=== PATIENT | male | born 1960 | race African-American/Black ===

== ENCOUNTER 2016-07-10 12:59 | Emergency (ER) | payer OTHER ==
[~2016-07-10] VITALS: Ht 177.8 cm; Wt 98.0 kg
[~2016-07-10 12:59] MED LIST: IBUP-232 PO
[2016-07-10 13:03] VITALS: BP 144/88; PULSE 70; RESP 16; TEMP 98.1; O2SAT 98
[2016-07-10] MEDS ORDERED: cefTRIAXone 250 MG VIAL IM ONE (13:15)
[2016-07-10] MEDS ORDERED: AZITHROMYCIN 250 MG TAB PO ONE (13:15)
[2016-07-10] MEDS ORDERED: LIDOCAINE HCL 1% 50 ML VIAL XX ONE (13:15)
[2016-07-10] MEDS ORDERED: metroNIDAZOLE 500 MG TAB PO ONE (13:15)
--- NOTE | 2016-07-10 13:18 | PD ---
HPI Chief Complaint: Complaint Time Seen by Provider: 13:17 Travel History International Travel<30 days: No Contact w/Intl Traveler<30days: No Traveled to known affect area: No History of Present Illness HPI 56-year-old male presents to the emergency department requesting treatment for exposure to sexual transmitted infection. The patient states that he had unprotected sexual intercourse with a woman recently and was told by her that she tested positive for Trichomonas. He is here requesting treatment for Trichomonas. He is also complaining of intermittent left hip pain that radiates down his left leg. Aggravated with bending over to touch his left foot. Alleviated with rest. This has been ongoing for about 5 or 6 months. No traumatic injury. He denies any fever, chills, nausea, vomiting, abdominal pain, testicular pain, burning with urination, painful urination, hematuria. No other complaints. PFSH Past Medical History Medical History: Denies Significant Hx Hx Anticoagulant Therapy: No Diminished Hearing: No Immunizations Current: Yes Influenza Vaccination: No ?: Not Past Surgical History Other Surgery: Yes (ELBOW SURGERY) Social History Alcohol Use: Yes (SOCIAL) Tobacco Use: No Substance Use: No Allergies-Medications (Allergen,Severity, Reaction): Coded Allergies: No Known Allergies (Unverified , 07/10/16) Reported Meds & Prescriptions Reported Meds & Active Scripts Active Naproxen 500 Mg Tab 500 Mg PO BID 7 Days Review of Systems Except as stated in HPI: all other systems reviewed are Neg Physical Exam Narrative GENERAL: Well-nourished and well-developed male patient in no acute distress who is nontoxic appearing. SKIN: Warm and dry. HEAD: Normocephalic and atraumatic. EYES: No injection, drainage, or hyphema noted. PERRLA. EOMI. ENT: No nasal drainage noted. Oropharynx is clear. NECK: Supple and the trachea is midline. CARDIOVASCULAR: Regular rate and rhythm. RESPIRATORY: Breath sounds are equal bilaterally with no accessory muscle use, wheezing, rhonchi, or crackles. GASTROINTESTINAL: Abdomen is soft, non-tender, and nondistended. MUSCULOSKELETAL: No obvious deformities, swelling, cyanosis, or ecchymosis is present throughout the upper and lower extremities. Patient has full range of motion without any signs of neurovascular compromise. Strength 5/5 upper and lower extremities equal bilaterally. BACK: Nontender without any obvious deformities, bony point tenderness, or crepitus noted throughout the thoracic and lumbar vertebrae. NEUROLOGICAL: Awake, alert, and oriented. Normal speech and gait. Cranial nerves are grossly intact. Data Data Last Documented VS Vital Signs Date Time Temp Pulse Resp B/P Pulse Ox O2 Delivery O2 Flow Rate FiO2 07/10/16 13:03 98.1 70 16 144/88 98 Orders Gc And Chlamydia Pcr (07/10/16 13:15) Ceftriaxone Inj (Rocephin Inj) (07/10/16 13:15) Lidocaine 1% Inj (50 Ml) (Xylocaine 1% I (07/10/16 13:15) Azithromycin (Zithromax) (07/10/16 13:15) Metronidazole (Flagyl) (07/10/16 13:15) MDM Medical Decision Making Medical Screen Exam Complete: Yes Emergency Medical Condition: Yes Differential Diagnosis STI versus STD exposure versus sciatica Narrative Course 56-year-old male presents to the emergency department for evaluation of STD exposure. Patient is afebrile, vital signs are stable. Physical examination is unremarkable. He is also complaining of sciatica pain is been ongoing for 6 months. We'll treat the patient empirically for Trichomonas, gonorrhea and chlamydia here in the emergency department. A gonorrhea and chlamydia PCR has been ordered. He'll be treated with naproxen for sciatica. Stressed the importance of follow-up as an outpatient with a primary care provider and with the health department. Patient verbalizes understanding and agreement with treatment plan. Diagnosis Primary Impression: STD exposure Additional Impression: Sciatic leg pain Referrals: [facility] Primary Care Physician [facility] Dept. Patient Instructions: General Instructions, Sciatica (ED), Sexually Transmitted Diseases (ED) Additional Instructions: Take medications as prescribed with food and a full glass of water. Follow-up with the [facility] Department. Return to the ED for any acute worsening of symptoms. Med/Other Pt SpecificInfo: Prescription(s) given Scripts Naproxen 500 Mg [id number] Mg PO BID 7 Days Ref 0 Prov:Deon Abreu MD 07/10/16 Disposition: 01 DISCHARGE HOME Condition: Stable Ann Shepard Jul 10, 2016 13:18
[2016-07-10] MEDS ORDERED: NAPR500T PO (13:19)
[2016-07-10 18:22] LABS: CHLAMYDIA PCR NOT DETECTED (NOT DETECT); NEISSERIA PCR NOT DETECTED (NOT DETECT)
== END 2016-07-10 13:50 | disposition home or self-care (01) ==
LOC: PHEFT 12:59
DX: M54.32 Sciatica, left side (principal); Z20.2 Contact with and (suspected) exposure to infections with a predominantly sexual mode of transmission
CPT/HCPCS: 87491; 87591; 96372; 99283; J0696